=== PATIENT | female | born 1935 | race Hispanic/Latino ===

== ENCOUNTER 2016-05-17 12:02 | Emergency (ER) | payer MEDICARE, OTHER ==
[2016-05-17 12:21] VITALS: PULSE 75; RESP 18
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
[2016-05-17 16:19] VITALS: BP 175/68; TEMP 97.8
--- NOTE | 2016-05-18 12:13 | CARD ---
APPROVED REPORT EKG Measurement Heart [id number] <Conclusion> Normal sinus rhythm Normal ECG
[2016-05-19 18:17] VITALS: O2SAT 98
== END 2016-05-17 16:20 | disposition home or self-care (01) ==
LOC: C.ER 12:02
DX: S40.021A Contusion of right upper arm, initial encounter (principal); S70.00XA Contusion of unspecified hip, initial encounter; S16.1XXA Strain of muscle, fascia and tendon at neck level, initial encounter; S00.93XA Contusion of unspecified part of head, initial encounter; V43.62XA Car passenger injured in collision with other type car in traffic accident, initial encounter; Y92.410 Unspecified street and highway as the place of occurrence of the external cause

== ENCOUNTER 2017-05-02 12:47 | Emergency (ER) | payer MEDICARE, OTHER ==
[2017-05-02 13:00] VITALS: RESP 18; TEMP 97.6
[2017-05-02] MEDS ORDERED: Sodium Chloride 0.9% 1,000 ML IV ONE (13:37)
--- NOTE | 2017-05-02 14:08 | C.PDOC ---
History Of Present Illness 82 year old female, otherwise well, presents to the emergency department for multiple episodes of non-bloody non-bilious vomiting, onset around 8AM this morning. After the vomiting, she began feeling dizzy and nauseous. Dizziness worsens with movement and positioning. Patient states she took two Advil prior to onset of symptoms. She denies any abdominal pain, diarrhea, constipation, or dysuria. No cp, no sob. PMD: [place] [facility] Time Seen by Provider: 05/02/17 13:17 Chief Complaint (Nursing): GI Problem History Per: Patient History/Exam Limitations: no limitations Onset/Duration Of Symptoms: Hrs Current Symptoms Are (Timing): Still Present Past Medical History Reviewed: Historical Data, Nursing Documentation, Vital Signs Vital Signs: Last Vital Signs Temp 97.6 F 05/02/17 16:35 Pulse 81 05/02/17 16:35 Resp 18 05/02/17 16:35 BP 176/77 H 05/02/17 16:35 Pulse Ox 99 05/02/17 17:54 - Medical History PMH: No Chronic Diseases Surgical History: No Surg Hx Family History: States: No Known Family Hx - Social History Hx Alcohol Use: No Hx Substance Use: No - Immunization History Hx Tetanus Toxoid Vaccination: No Hx Influenza Vaccination: No Hx Pneumococcal Vaccination: No Review Of Systems Except As Marked, All Systems Reviewed And Found Negative. Gastrointestinal: Positive for: Nausea, Vomiting Neurological: Positive for: Dizziness Physical Exam - Physical Exam Appears: Non-toxic, No Acute Distress Skin: Warm, Dry, Other (Poor skin turgor) Head: Atraumatic, Normacephalic Eye(s): bilateral: Normal Inspection, PERRL, EOMI Nose: Normal Oral Mucosa: Dry Neck: Normal ROM, Supple Chest: Symmetrical Cardiovascular: Rhythm Regular, No Murmur Respiratory: Normal Breath Sounds, No Accessory Muscle Use Gastrointestinal/Abdominal: Soft, No Tenderness, No Distention Extremity: Bilateral: Atraumatic, Normal Color And Temperature, Normal ROM Neurological/Psych: Oriented x3, Normal Speech ED Course And Treatment - Laboratory Results Result Diagrams: 05/02/17 14:08 05/02/17 14:08 ECG: Interpreted By Me, Viewed By Me ECG Rhythm: Sinus Rhythm (with normal axis, no ST/T wave abnormalities ) ECG Interpretation: Normal Rate From EC O2 Sat by Pulse Oximetry: 99 (RA) Pulse Ox Interpretation: Normal - Radiology CXR: Viewed By Me, Read By Radiologist CXR Interpretation: Yes: No Acute Disease - CT Scan/US CT head Other Rad Studies (CT/US): Read By Radiologist, Radiology Report Reviewed CT/US Interpretation: FINDINGS: HEMORRHAGE: No intracranial hemorrhage. BRAIN : Diffuse atrophy with prominence of the ventricles and sulci noted. No mass effect or edema. Intracranial atherosclerosis. Nonspecific air noted within the cavernous sinus. Scattered periventricular and subcortical white matter hypodensities, which are nonspecific, but often seen with chronic microvascular ischemic disease. Please note that MRI with diffusion imaging is more sensitive in the detection of acute ischemic event. VENTRICLES: No hydrocephalus. CALVARIUM: Unremarkable. PARANASAL SINUSES: Unremarkable as visualized. No significant inflammatory changes. MASTOID AIR CELLS: Unremarkable as visualized. No inflammatory changes. OTHER FINDINGS: Bilateral opacification of the external auditory canals, likely cerumen. IMPRESSION: Generalized atrophy. Intracranial atherosclerosis. Nonspecific air noted within the cavernous sinus. Nonspecific scattered white matter changes. Additional findings as above. Medical Decision Making Medical Decision Making: Initial Impression: 82 y/o with nausea and vomiting Time: 13:37 Initial Plan: * EKG * Lipase * Magnesium * Troponin I * CMP * CBC * Chest x-ray * Urinalysis * IV fluids * Protonix 40 mg IVP * Zofran 4 mg IVP 16:40 Patient complaining of worsened dizziness. Will order CT Head. Patient given Meclizine, Sudafed, and Tylenol. On reevaluation, patient reports feeling better. Offered admission for observation, and patient refuses and wants to go home. Patient is ambulatory without limitations, and is stable for discharge home. Advised to follow up with primary doctor in 1-2 days. Diagnosis: Dizziness and Nausea (resolved) Disposition Discussed With : Sergo Gunn Counseled Patient/Family Regarding: Studies Performed, Diagnosis, Need For Followup, Rx Given - Disposition Disposition: HOME/ ROUTINE Disposition Time: 17:38 Condition: IMPROVED Additional Instructions: follow up with your doctor in 2 days call to make an appointment you were offered hospital admission you are welcome to return to hospital at any time take medications as needed Prescriptions: Famotidine [Pepcid] 20 mg PO BID #20 tab Meclizine [Meclizine*] 25 mg PO TID PRN #15 tab PRN Reason: Dizziness Ondansetron ODT [Zofran ODT] 4 mg PO TID PRN #12 odt PRN Reason: Nausea/Vomiting Pseudoephedrine HCl [Sudafed] 30 mg PO TID PRN #10 tablet PRN Reason: Dizziness Instructions: Vertigo (a Type of Dizziness), Nausea and Vomiting, Adult Forms: [facility] ([employer]), General Discharge Instructions - Clinical Impression Clinical Impression: Dizziness, Vomiting - Scribe Statement The provider has reviewed the documentation as recorded by the Scribe (Natalie Alamo) Provider Attestation: All medical record entries made by the Scribe were at my direction and personally dictated by me. I have reviewed the chart and agree that the record accurately reflects my personal performance of the history, physical exam, medical decision making, and the department course for this patient. I have also personally directed, reviewed, and agree with the discharge instructions and disposition.
[2017-05-02 14:12] LABS: BASO % 0.2 % (0.0-2.0); HEMOGLOBIN 13.8 g/dL (11.0-16.0); LYMPH # 1.5 K/uL (1.0-4.3); LYMPH % 11.1 % (20.0-40.0); MEAN CELL VOLUME 76.1 fL (81.0-99.0); MEAN CORPUSCULAR HEMOGLOBIN 25.4 pg (27.0-31.0); MEAN CORPUSCULAR HGB CONC 33.4 g/dL (33.0-37.0); MEAN PLATELET VOLUME 9.3 fL (7.2-11.7); MONO # 0.3 K/uL (0.0-0.8); MONO % 1.8 % (0.0-10.0); NEUT % 86.9 % (50.0-75.0); RBC 5.42 Mil/uL (3.80-5.20); RED CELL DISTRIBUTION WIDTH 14.9 % (11.5-14.5); WHITE BLOOD COUNT 13.8 K/uL (4.8-10.8)
[2017-05-02] MEDS ORDERED: Sodium Chloride 0.9% 1,000 ML ONE (14:24)
[2017-05-02 14:26] LABS: ALB/GLOB RATIO 1.4 (1.0-2.1); ALBUMIN 4.5 g/dL (3.5-5.0); ALT/SGPT 33 U/L (9-52); AST/SGOT 29 U/L (14-36); BLOOD UREA NITROGEN 20 mg/dL (7-17); CALCIUM 9.7 mg/dl (8.6-10.4); GFR AFRICAN-AMERICAN > 60; GFR NON-AFRICAN AMERICAN > 60; LIPASE 71 U/L (23-300)
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
[2017-05-02 16:08] LABS: SQUAMOUS EPITHIAL < 1 /hpf (0-5); URINE BILIRUBIN NEGATIVE (NEGATIVE); URINE BLOOD NEGATIVE (NEGATIVE); URINE CLARITY Clear (Clear); URINE COLOR Straw (YELLOW); URINE GLUCOSE (UA) NORMAL (Normal); URINE LEUKOCYTE ESTERASE NEG Leu/uL (Negative); URINE PROTEIN NEGATIVE (NEGATIVE); URINE UROBILINOGEN NORMAL mg/dL (0.2-1.0)
[2017-05-02 16:35] VITALS: BP 176/77; PULSE 81
--- NOTE | 2017-05-02 17:23 | CT ---
PROCEDURE: CT HEAD WITHOUT CONTRAST. HISTORY: dizziness COMPARISON: Noncontrast head CT performed 05/17/16 TECHNIQUE: Axial computed tomography images were obtained through the head/brain without intravenous contrast. Radiation dose: Total exam DLP = 713.58 mGy-cm. This CT exam was performed using one or more of the following dose reduction techniques: Automated exposure control, adjustment of the mA and/or kV according to patient size, and/or use of iterative reconstruction technique. FINDINGS: HEMORRHAGE: No intracranial hemorrhage. BRAIN: Diffuse atrophy with prominence of the ventricles and sulci noted. No mass effect or edema. Intracranial atherosclerosis. Nonspecific air noted within the cavernous sinus. Scattered periventricular and subcortical white matter hypodensities, which are nonspecific, but often seen with chronic microvascular ischemic disease. Please note that MRI with diffusion imaging is more sensitive in the detection of acute ischemic event. VENTRICLES: No hydrocephalus. CALVARIUM: Unremarkable. PARANASAL SINUSES: Unremarkable as visualized. No significant inflammatory changes. MASTOID AIR CELLS: Unremarkable as visualized. No inflammatory changes. OTHER FINDINGS: Bilateral opacification of the external auditory canals, likely cerumen. IMPRESSION: Generalized atrophy. Intracranial atherosclerosis. Nonspecific air noted within the cavernous sinus. Nonspecific scattered white matter changes. Additional findings as above.
[2017-05-02 17:41] VITALS: O2SAT 99
--- NOTE | 2017-05-04 15:59 | CARD ---
APPROVED REPORT EKG Measurement Heart [id number] <Conclusion> Normal sinus rhythm Normal ECG
== END 2017-05-02 17:50 | disposition home or self-care (01) ==
LOC: C.ER 12:47
DX: R11.0 Nausea (principal); R42 Dizziness and giddiness
CPT/HCPCS: 70450; 71045; 80053; 81001; 83690; 83735; 84484; 85025; 93005; 96361; 96374; 96375; 99285; C9113; J2405; J7040

== ENCOUNTER 2017-08-29 21:15 | Emergency (ER) | payer MEDICARE ==
[2017-08-29 21:27] VITALS: O2SAT 98
[2017-08-29] MEDS ORDERED: Sodium Chloride 0.9% 500 ML IV STA (21:32)
[2017-08-29 21:46] LABS: BASO # 0.1 K/uL (0.0-0.2); BASO % 0.8 % (0.0-2.0); EOS % 0.4 % (0.0-4.0); HEMOGLOBIN 13.2 g/dL (11.0-16.0); LYMPH # 2.6 K/uL (1.0-4.3); LYMPH % 26.5 % (20.0-40.0); MEAN CELL VOLUME 76.7 fL (81.0-99.0); MEAN CORPUSCULAR HEMOGLOBIN 25.2 pg (27.0-31.0); MEAN CORPUSCULAR HGB CONC 32.8 g/dL (33.0-37.0); MEAN PLATELET VOLUME 8.6 fL (7.2-11.7); MONO # 0.6 K/uL (0.0-0.8); MONO % 6.1 % (0.0-10.0); NEUT # 6.6 K/uL (1.8-7.0); NEUT % 66.2 % (50.0-75.0); RBC 5.25 Mil/uL (3.80-5.20); RED CELL DISTRIBUTION WIDTH 15.1 % (11.5-14.5)
[2017-08-29] MEDS ORDERED: Sodium Chloride 0.9% 500 ML IV ONE (21:46)
[2017-08-29 22:00] LABS: INR 1.3; PROTHROMBIN TIME 13.7 SECONDS (9.7-12.2)
[2017-08-29 22:03] LABS: ALB/GLOB RATIO 1.4 (1.0-2.1); ALBUMIN 4.5 g/dL (3.5-5.0); ALT/SGPT 26 U/L (9-52); AST/SGOT 26 U/L (14-36); BLOOD UREA NITROGEN 22 mg/dL (7-17); CALCIUM 9.7 mg/dl (8.6-10.4); GFR AFRICAN-AMERICAN > 60; GFR NON-AFRICAN AMERICAN > 60
--- NOTE | 2017-08-29 22:43 | C.PDOC ---
History Of Present Illness <Rosalba Graham - Last Filed: 08/29/17 22:51> <Master Oro M - Last Filed: 08/30/17 01:05> 82 y/o female brought by ambulance to ED for complaints of left shoulder pain. Patient states she was in her backyard and fell on her left shoulder over a stony fence. Denies any other injuries or trauma to head or any other complaints. (Rosalba Graham) History Per: Patient History/Exam Limitations: no limitations Onset/Duration Of Symptoms: Hrs Current Symptoms Are (Timing): Still Present Quality: "Pain" Exacerbating Factor(s): Nothing Recent travel outside of the [place]: No <Rosalba Graham - Last Filed: 08/29/17 22:51> <Master Oro M - Last Filed: 08/30/17 01:05> Time Seen by Provider: 08/29/17 21:29 Chief Complaint (Nursing): Upper Extremity Problem/Injury Past Medical History Reviewed: Historical Data, Nursing Documentation, Vital Signs - Medical History PMH: No Chronic Diseases Surgical History: No Surg Hx Family History: States: No Known Family Hx - Social History Hx Alcohol Use: No Hx Substance Use: No - Immunization History Hx Tetanus Toxoid Vaccination: No Hx Influenza Vaccination: No Hx Pneumococcal Vaccination: No <Rosalba Graham - Last Filed: 08/29/17 22:51> Vital Signs: Last Vital Signs Temp 98.3 F 08/29/17 23:16 Pulse 77 08/29/17 23:16 Resp 22 08/29/17 23:16 BP 174/78 H 08/29/17 23:16 Pulse Ox 98 08/29/17 23:16 Review Of Systems Constitutional: Negative for: Fever, Chills Gastrointestinal: Negative for: Nausea, Vomiting, Abdominal Pain, Diarrhea Musculoskeletal: Positive for: Shoulder Pain (Left shoulder) Skin: Negative for: Rash Neurological: Negative for: Weakness, Numbness <Rosalba Graham - Last Filed: 08/29/17 22:51> Physical Exam - Physical Exam Appears: Non-toxic, No Acute Distress Skin: Warm, Dry Head: Atraumatic, Normacephalic Eye(s): bilateral: Normal Inspection, PERRL, EOMI Oral Mucosa: Moist Neck: Trachea Midline, No Midline Cervical Tenderness, No Paracervical Tenderness, Supple Chest: Symmetrical, No Tenderness Cardiovascular: Rhythm Regular, No Murmur Respiratory: No Decreased Breath Sounds, No Rales, No Rhonchi, No Wheezing Gastrointestinal/Abdominal: Soft, No Tenderness Back: Normal Inspection, No CVA Tenderness, No Vertebral Tenderness, No Paraspinal Tenderness Extremity: Tenderness (To posterio-lateral shoulder), Capillary Refill (Less than 2 seconds), No Deformity, Other (Decreased ROM to left shoulder due to pain ; No obvious deformity) Extremity: Bilateral: Normal Color And Temperature Pulses: Left Radial: Normal Neurological/Psych: Oriented x3, Normal Speech (Speaking in full sentences ), Other (No focal deficits ) Gait: Steady <Rosalba Graham - Last Filed: 08/29/17 22:51> ED Course And Treatment - Laboratory Results Result Diagrams: 08/29/17 21:43 08/29/17 21:43 O2 Sat by Pulse Oximetry: 98 (RA) Pulse Ox Interpretation: Normal Progress Note: Administered Morphine and IV fluids. Ordered CT of upper extremity. 10:46PM: - Pending CT of upper extremity. - Patient will be signed out to Dr. Oro <Rosalba Graham - Last Filed: 08/29/17 22:51> - Laboratory Results Result Diagrams: 08/29/17 21:43 08/29/17 21:43 <Master Oro - Last Filed: 08/30/17 01:05> Medical Decision Making <Rosalba Graham - Last Filed: 08/29/17 22:51> <Master Oro - Last Filed: 08/30/17 01:05> Medical Decision Makin am -shoulder relocated with external rotation, fentyl 50 mcg given, patient tolerated procedure well, nv intact, case s/o to dR. [facility] pending xray, reevaluation and discharge (Master Oro) Disposition - Disposition Disposition Time: 22:52 <Rosalba Graham - Last Filed: 08/29/17 22:51> <Master Oro - Last Filed: 08/30/17 01:05> - Disposition Condition: FAIR Forms: [employer] ([place]wana) - Clinical Impression Clinical Impression: Shoulder injury - PA / QUALITY CONTROL COORDINATOR / Resident Statement MD/DO has reviewed & agrees with the documentation as recorded. - Scribe Statement The provider has reviewed the documentation as recorded by the Scribe <Rosalba Graham - Last Filed: 08/29/17 22:51> <Master Oro - Last Filed: 08/30/17 01:05> - Scribe Statement Nixon Aldana All medical record entries made by the Scribe were at my direction and personally dictated by me. I have reviewed the chart and agree that the record accurately reflects my personal performance of the history, physical exam, medical decision making, and the department course for this patient. I have also personally directed, reviewed, and agree with the discharge instructions and disposition. (Rosalba Graham) Physician Patient Turnover Patient Signed Over To: Master Oro Handoff Comments: CT of upper extremity pending <Rosalba Graham - Last Filed: 08/29/17 22:51>
[2017-08-30] MEDS ORDERED: Bacitracin 500 Units/gm Oint Foilpak UD ONE (00:05)
[2017-08-30 01:59] VITALS: BP 168/75; PULSE 72; RESP 16; TEMP 98.4
--- NOTE | 2017-08-30 10:49 | RAD ---
PROCEDURE: Radiographs of the Left Shoulder HISTORY: fall COMPARISON: CT of the left shoulder performed approximately 2 hours prior. FINDINGS: Limited evaluation due to presence of only one view. There has been interval shoulder reduction with the humeral head now in articulation with the glenoid fossa. No other significant interval changes are identified. IMPRESSION: Interval reduction of the left shoulder dislocation.
--- NOTE | 2017-08-31 10:13 | CT ---
CT left shoulder History: Shoulder pain. Shoulder injury. Comparison: None available. Technique: Multiple contiguous axial images were performed through the left shoulder without the use of intravenous contrast. Subsequently, sagittal and coronal reformatted images were obtained. Findings: Anterior inferior dislocation of the left glenohumeral head. Subchondral cystic degenerative type changes noted. Irregularity of the posterior humeral head with a slight bend in the cortex consistent with an impacted Hill-Sachs deformity. Suggestion of a possible nondisplaced Bankart deformity/fracture of the inferior mid and anterior bony glenoid. Prominent amount of fluid in the glenohumeral joint space. Degenerative changes involving the facet joints and cervical spine. Impression: Anterior inferior dislocation of the left glenohumeral head. Subchondral cystic degenerative type changes noted. Irregularity of the posterior humeral head with a slight bend in the cortex consistent with an impacted Hill-Sachs deformity. Suggestion of a possible nondisplaced Bankart deformity/fracture of the inferior mid and anterior bony glenoid. Prominent amount of fluid in the glenohumeral joint space. Correlation with MRI may be helpful if clinically indicated. These findings were preliminarily reported at 12:25 a.m. on 08/30/[address] Brennan Alcazar from [facility].
== END 2017-08-30 01:58 | disposition home or self-care (01) ==
LOC: C.ER 21:15
DX: S43.085A Other dislocation of left shoulder joint, initial encounter (principal); W19.XXXA Unspecified fall, initial encounter
CPT/HCPCS: 23650; 73030; 73200; 80053; 85025; 85610; 85730; 96361; 96374; 96375; 96376; 99284; J1885; J2270; J3010; J7040